=== PATIENT | female | born 2000 | race African-American/Black ===

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

== ENCOUNTER 2023-04-28 23:28 | Emergency (ER) | payer MEDICAID, OTHER ==
[~2023-04-28] VITALS: Ht 162.6 cm; Wt 108.0 kg
[2023-04-28 23:55] VITALS: BP 104/42
[2023-04-29] MEDS ORDERED: ALBUTEROL (0.083%) 2.5MG/3ML NEB HHN ONE (00:30)
[2023-04-29 00:41] VITALS: PULSE 79; RESP 18; O2SAT 97
[2023-04-29] MEDS ORDERED: CETI5TAB5 MT (01:06)
[2023-04-29 01:24] VITALS: PULSE 79; RESP 18; TEMP 98.3
== END 2023-04-29 01:28 | disposition home or self-care (01) ==
LOC: ER 23:28
DX: B34.9 Viral infection, unspecified (principal); R09.81 Nasal congestion; J45.909 Unspecified asthma, uncomplicated; F12.10 Cannabis abuse, uncomplicated
CPT/HCPCS: 81025; 94640; 99283; 71045; 93005; Z7610 ×3

== ENCOUNTER 2023-06-05 23:54 | Emergency (ER) | payer MEDICAID ==
[~2023-06-05] VITALS: Ht 162.6 cm; Wt 107.9 kg
[~2023-06-05 23:54] MED LIST: CETI5TAB5 MT
[2023-06-06 01:19] VITALS: TEMP 97.8; O2SAT 97
[2023-06-06 01:42] LABS: CLARITY URINE CLEAR (CLEAR); COLOR URINE YELLOW (YELLOW); GLUCOSE URINE NEGATIVE (NEGATIVE); KETONES URINE NEGATIVE (NEGATIVE); LEUKOCYTE ESTERASE URINE NEGATIVE (NEGATIVE); NITRITE URINE NEGATIVE (NEGATIVE); OCCULT BLOOD URINE NEGATIVE (NEGATIVE); PROTEIN URINE NEGATIVE (NEGATIVE); SPECIFIC GRAVITY URINE 1.034 (1.005-1.030)
[2023-06-06 02:30] VITALS: BP 117/74; PULSE 74; RESP 16
[2023-06-06] MEDS ORDERED: IBUPROFEN 600MG TABLET PO ONE (02:30)
== END 2023-06-06 03:29 | disposition home or self-care (01) ==
LOC: ER 23:54
DX: J02.9 Acute pharyngitis, unspecified (principal); F12.10 Cannabis abuse, uncomplicated; J45.909 Unspecified asthma, uncomplicated; Z88.8 Allergy status to other drugs, medicaments and biological substances
CPT/HCPCS: 81003; 81025; 87070; 87430; 99283

== ENCOUNTER 2023-07-10 19:27 | Emergency (ER) | payer MEDICAID ==
[~2023-07-10] VITALS: Ht 162.6 cm; Wt 106.0 kg
[2023-07-10 20:13] VITALS: BP 105/47; PULSE 69; RESP 18; TEMP 98.2; O2SAT 100
[2023-07-10 21:22] LABS: CLARITY URINE CLEAR (CLEAR); COLOR URINE YELLOW (YELLOW); GLUCOSE URINE NEGATIVE (NEGATIVE); KETONES URINE NEGATIVE (NEGATIVE); LEUKOCYTE ESTERASE URINE NEGATIVE (NEGATIVE); NITRITE URINE NEGATIVE (NEGATIVE); OCCULT BLOOD URINE NEGATIVE (NEGATIVE); PROTEIN URINE NEGATIVE (NEGATIVE); SPECIFIC GRAVITY URINE 1.018 (1.005-1.030); UROBILINOGEN URINE 0.2 E.U./dL (0.2-1.0)
[2023-07-10] MEDS ORDERED: LORA5TAB8 MT (21:42)
[2023-07-10] MEDS ORDERED: FLUT9.9S BOTHNSTRLS (21:42)
== END 2023-07-10 22:37 | disposition home or self-care (01) ==
LOC: ER 19:27
DX: R09.81 Nasal congestion (principal); F12.10 Cannabis abuse, uncomplicated; Z88.8 Allergy status to other drugs, medicaments and biological substances
CPT/HCPCS: 81003; 81025; 99283

== ENCOUNTER 2024-06-27 16:10 | Emergency (ER) | payer MEDICAID ==
[~2024-06-27] VITALS: Ht 167.6 cm; Wt 107.0 kg
[~2024-06-27 16:10] MED LIST changes: +FLUT9.9S BOTHNSTRLS; +LORA5TAB8 MT
[2024-06-27 16:14] VITALS: BP 136/75; PULSE 96; RESP 16; TEMP 97.6; O2SAT 98
[2024-06-27] MEDS ORDERED: ALBU90AE INH (18:06)
== END 2024-06-27 18:12 | disposition home or self-care (01) ==
LOC: ER 16:18
DX: J45.909 Unspecified asthma, uncomplicated (principal); F12.90 Cannabis use, unspecified, uncomplicated; I10 Essential (primary) hypertension; Z76.0 Encounter for issue of repeat prescription
CPT/HCPCS: 99281